=== PATIENT | male | born 1935 | race Caucasian/White ===

== ENCOUNTER 2019-03-17 10:26 | Inpatient (IN) | payer MEDICARE ==
[2019-03-17] VITALS (7 sets, daily range): BP systolic 111–153; BP diastolic 39–95
[~2019-03-17] VITALS: Ht 177.8 cm; Wt 83.0 kg
--- NOTE | 2019-03-17 10:52 | ED Dyspnea ---
General Chief Complaint: Cardiac/General Problems Stated Complaint: SOB; DIZZY Source of Information: Patient Exam Limitations: No Limitations History of Present Illness Date Seen by Provider: Mar 17, 2019 Time Seen by Provider: 10:32 Initial Comments The patient is a pleasant 83-year-old male presents for evaluation of shortness of breath and some lightheadedness over the last day or so. He reports a history of congestive heart failure and states that he normally has some lower extremity edema but mentions that this is been getting worse. Upon arrival his heart rate on the monitor is noted to have 2 consecutive beats followed by a positive and then this repeats. He denies any chest pain, fevers or chills, nausea or vomiting, abdominal or back pain, diarrhea, urinary complaints, productive cough, hemoptysis, or syncope. Is alert and oriented 4, calm, and appears to be in no distress at this time. Timing/Duration: 24 Hours Severity: Mild Activities at Onset: None Allergies and Home Medications Allergies Coded Allergies: BCG (Bacillus Calmette-Abdias) vacc (Verified Allergy, Unknown, 03/17/19) Patient Home Medication List Home Medication List Reviewed: Yes Review of Systems Review of Systems Constitutional: no symptoms reported EENTM: no symptoms reported Respiratory: short of breath Cardiovascular: edema Gastrointestinal: no symptoms reported Genitourinary: no symptoms reported Musculoskeletal: no symptoms reported Skin: no symptoms reported Psychiatric/Neurological: No Symptoms Reported Endocrine: No Symptoms Reported Hematologic/Lymphatic: No Symptoms Reported All Other Systems Reviewed Negative Unless Noted: Yes Past Rmhvahy-Wcbtoa-Smvgar Hx Past Med/Social Hx: Reviewed Nursing Past Med/Soc Hx Patient Social History Recent Foreign Travel: No Physical Exam Vital Signs Vital Signs - First Documented 03/17/19 10:47 Temp 36.1 Pulse 60 Resp 17 B/P (MAP) 135/78 (97) Pulse Ox 94 O2 Delivery Room Air Capillary Refill : Height, Weight, BMI Height: '" Weight: lbs. oz. 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 Norm as Tested Skin: Normal Color, Warm/Dry Progress/Results/Core Measures Results/Orders Lab Results Laboratory Tests Test 03/17/19 10:40 Range/Units White Blood Count 8.2 4.3-11.0 10^3/uL Red Blood Count 3.00 L 4.35-5.85 10^6/uL Hemoglobin 8.6 L 13.3-17.7 G/DL Hematocrit 27 L 40-54 % Mean Corpuscular Volume 89 80-99 FL Mean Corpuscular Hemoglobin 29 25-34 PG Mean Corpuscular Hemoglobin Concent 32 32-36 G/DL Red Cell Distribution Width 14.7 H 10.0-14.5 % Platelet Count 388 130-400 10^3/uL Mean Platelet Volume 9.1 7.4-10.4 FL Neutrophils (%) (Auto) 82 H 42-75 % Lymphocytes (%) (Auto) 13 12-44 % Monocytes (%) (Auto) 4 0-12 % Eosinophils (%) (Auto) 0 0-10 % Basophils (%) (Auto) 0 0-10 % Neutrophils # (Auto) 6.7 1.8-7.8 X 10^3 Lymphocytes # (Auto) 1.1 1.0-4.0 X 10^3 Monocytes # (Auto) 0.4 0.0-1.0 X 10^3 Eosinophils # (Auto) 0.0 0.0-0.3 10^3/uL Basophils # (Auto) 0.0 0.0-0.1 10^3/uL Sodium Level 131 L 135-145 MMOL/L Potassium Level 5.5 H 3.6-5.0 MMOL/L Chloride Level 99 98-107 MMOL/L Carbon Dioxide Level 16 L 21-32 MMOL/L Anion Gap 16 H 5-14 MMOL/L Blood Urea Nitrogen 65 H 7-18 MG/DL Creatinine 3.07 H 0.60-1.30 MG/DL Estimat Glomerular Filtration Rate 20 BUN/Creatinine Ratio 21 Glucose Level 169 H 70-105 MG/DL Calcium Level 9.1 8.5-10.1 MG/DL Corrected Calcium 9.7 8.5-10.1 MG/DL Total Bilirubin 0.3 0.1-1.0 MG/DL Aspartate Amino Transf (AST/SGOT) 78 H 5-34 U/L Alanine Aminotransferase (ALT/SGPT) 66 H 0-55 U/L Alkaline Phosphatase 205 H 40-136 U/L Troponin I < 0.30 <0.30 NG/ML Pro-B-Type Natriuretic Peptide 56831.0 H <75.0 PG/ML Total Protein 7.2 6.4-8.2 GM/DL Albumin 3.2 3.2-4.5 GM/DL My Orders Orders - KRISTAN KNOWLES DO Cbc With Automated Diff (03/17/19 10:28) Comprehensive Metabolic Panel (03/17/19 10:28) Chest 1 View Ap/Pa Only (03/17/19 10:28) Ekg Tracing (03/17/19 10:28) O2 (03/17/19 10:28) Ed Iv/Invasive Line Start (03/17/19 10:28) Probnp Fs (03/17/19 10:28) Troponin I Fs (03/17/19 10:28) Yard Supervisor (03/17/19 10:28) Vital Signs/I&O 03/17/19 10:47 Temp 36.1 Pulse 60 Resp 17 B/P (MAP) 135/78 (97) Pulse Ox 94 O2 Delivery Room Air Progress Progress Note : Progress Note @1125 - Patient's heart rate has decreased to the 20s and 30s however his blood pressure is still normal. The patient is awake and alert and conversing dahiana lly. He will need to be transferred to a higher level cardiac care facility. On- call qa tester for [facility] is Dr. Mullins and a voicemail has been left. Case was discussed with the [facility] admitting physician Dr. Black who accepts the patient for admission to the ICU. The patient may need to be evaluated for a pacemaker. His medications do not appear to be the culprit in this case. The patient is agreeable to the transfer to [facility]. Comment EKG@1035 - sinus rhythm, rate of 69, couplets/bigeminy followed by pause, no acute ischemic findings noted, no STEMI, reviewed and interpreted by myself Departure Communication (Admissions) Time/Spoke to Admitting Phy: 11:28 Dr. Black accepts the ICU admission at this time and requests a cardiology consultation with Dr. Mullins Impression Primary Impression: Severe sinus bradycardia Additional Impressions: Symptomatic bradycardia Dyspnea Anemia Acute exacerbation of CHF (congestive heart failure) Disposition: ADMITTED INPATIENT Condition: Critical Admissions Decision to Admit Reason: Admit from ER (General) Decision to Admit/Date: Mar 17, 2019 Time/Decision to Admit Time: 11:33 Departure-Patient Inst. Referrals: SELFVERONICA MD (PCP/Family) Primary Care Physician KRISTAN KNOWLES DO Mar 17, 2019 10:52 POS
[2019-03-17 10:53] LABS: HEMATOCRIT 27 % (40-54); HEMOGLOBIN 8.6 G/DL (13.3-17.7); MEAN CORPUSCULAR HEMOGLOBIN 29 PG (25-34); MEAN CORPUSCULAR HGB CONC 32 G/DL (32-36); MEAN CORPUSCULAR VOLUME 89 FL (80-99); RED CELL DISTRIBUTION WIDTH 14.7 % (10.0-14.5); WHITE BLOOD COUNT 8.2 10^3/uL (4.3-11.0)
[2019-03-17 10:54] LABS: BASOPHILS % (AUTO) 0 % (0-10); EOSINOPHILS % (AUTO) 0 % (0-10); LYMPHOCYTES # (AUTO) 1.1 X 10^3 (1.0-4.0); LYMPHOCYTES % (AUTO) 13 % (12-44); MEAN PLATELET VOLUME 9.1 FL (7.4-10.4); MONOCYTES # (AUTO) 0.4 X 10^3 (0.0-1.0); MONOCYTES % (AUTO) 4 % (0-12); NEUTROPHILS # (AUTO) 6.7 X 10^3 (1.8-7.8); NEUTROPHILS % (AUTO) 82 % (42-75); PLATELET COUNT 388 10^3/uL (130-400)
--- NOTE | 2019-03-17 11:18 | Diagnostic Imaging Report ---
CHEST 1 VIEW AP/PA ONLY Indication: Shortness of breath Comparison: None available. Findings: Right basilar consolidations are present. Small to moderate right pleural effusion. Patchy left basilar opacities are also seen, and there is a trace left pleural effusion. No pneumothorax. Cardiac silhouette is enlarged. Impression: 1. Right basilar consolidations with small effusion. This could represent pneumonia with parapneumonic effusion versus relaxation atelectasis due to the effusion. Dictated by: Dictated on workstation # [id number]
[2019-03-17 11:48] LABS: ALANINE AMINOTRANSFERASE 66 U/L (0-55); ALKALINE PHOSPHATASE 205 U/L (40-136); BILIRUBIN,TOTAL 0.3 MG/DL (0.1-1.0); BUN/CREATININE RATIO 21; CALCIUM 9.1 MG/DL (8.5-10.1); CARBON DIOXIDE 16 MMOL/L (21-32); CHLORIDE 99 MMOL/L (98-107); CREATININE SERUM 3.07 MG/DL (0.60-1.30); GFR ESTIMATED 20; GLUCOSE 169 MG/DL (70-105); POTASSIUM 5.5 MMOL/L (3.6-5.0); SODIUM 131 MMOL/L (135-145)
[2019-03-17 11:49] LABS: ALBUMIN 3.2 GM/DL (3.2-4.5); TOTAL PROTEIN 7.2 GM/DL (6.4-8.2)
[2019-03-17] MEDS ORDERED: FUROSEMIDE 40 MG/4 ML INJ (LASIX) IVP ONE (12:00)
[2019-03-17] MEDS ORDERED: ATROPINE INJECTION 1 MG/10 ML SYR (ABBOTT) ONE (12:58)
[2019-03-17] MEDS ORDERED: CATHETER FLUSH 10 ML SYR IV PRN (13:00)
[2019-03-17] MEDS ORDERED: LEVO112T55 PO (13:09)
[2019-03-17] MEDS ORDERED: FURO40TA4 PO (13:09)
[2019-03-17] MEDS ORDERED: TAMS0.4C98 PO (13:09)
[2019-03-17] MEDS ORDERED: ASPI-983 PO (13:17)
[2019-03-17] MEDS ORDERED: ACET-2429 PO (13:18)
[2019-03-17] MEDS ORDERED: GLUC100016 PO (13:20)
[2019-03-17] MEDS ORDERED: MAGN400T39 PO (13:20)
[2019-03-17] MEDS ORDERED: OMG1KC PO (13:20)
[2019-03-17] MEDS ORDERED: SODI30SP2 NS (13:23)
--- NOTE | 2019-03-17 13:23 | NUR ---
SPOKE WITH THE PATIENT ABOUT HIS MEDICATIONS. WE WENT OVER THE EXT MED HX AND HE VERIFIED HOW HE TAKES THEM. HE ALSO LISTED HIS OTC MEDS. OTC MEDS: TYLENOL BID PRN ASPIRIN 81MG DAILY FISH OIL BID (AM AND NOON) GLUCOSAMINE BID (AM AND NOON) MAGNESIUM HS SALINE NASAL SPRAY NEEDED
--- NOTE | 2019-03-17 13:45 | NUR ---
Pastoral care visit.
[2019-03-17] MEDS ORDERED: CATHETER FLUSH 10 ML SYR IV SCH (14:00)
--- NOTE | 2019-03-17 14:08 | Consultation-Cardiology ---
HPI-Cardiology Cardiology Consultation: Date of Consultation 03/17/19 Time Seen by a Provider: 13:40 Date of Admission 03-17-2019 Attending Physician Ashley Black DO Admitting Physician Boom Jessica MD Consulting Physician Geovanni Mullins MD HPI: Chief Complaint: Bradycardia Mr. Scott is an 83 year old male who has been admitted to ICU 10 from [facility]. He reports increasing weakness, dizziness and near syncope over the course of the last few weeks. He denies any daniella syncope. He reports chronic bilat LE swelling which has been progressively worse. He states he has been taking "fluid pills" to help with the swelling. He reports last night and again this morning he had abdominal pain with nausea and vomiting. He denies any CP. He denies any fever or chills. He states he has had cardiac testing "he thinks" sometime in the past at [facility], but does not recall any of the details or ever seeing a promotions director. His HR on tele is currently in the 40's to upper 30's. He is asymptomatic. Review of Systems-Cardiology Review of Systems Constitutional: No chills, No fever; lightheadedness, malaise Eyes: No vision change Ears/Nose/Throat: No epistaxis, No recent hearing loss Respiratory: As described under HPI Cardiovascular: As described under HPI Gastrointestinal: No constipation, No diarrhea; nausea, vomiting Genitourinary: No dysuria, No hematuria Skin: No rash on exposed areas, No ulcerations on exposed areas Psychiatric/Neurological: As described under HPI Hematologic: No bleeding abnormalities All Other Systems Reviewed Negative Unless Noted: Yes VHZ-Nggtcm-Pwavce Hx Patient Social History Alcohol Use: Denies Use Recreational Drug Use: No Smoking Status: Former Smoker Type Used: Cigarettes 2nd Hand Smoke Exposure: No Recent Foreign Travel: No Recent Infectious Disease Expo: No Hospitalization with Isolation: Denies Immunizations Up To Date Date of Pneumonia Vaccine: Mar 17, 2015 Date of Influenza Vaccine: Jan 28, 2019 Past Medical History PMH As described under Assessment. Family Medical History Family Medical History: He does not report any known family h/o CAD. Allergies and Home Medications Allergies Coded Allergies: BCG (Bacillus Calmette-Abdias) vacc (Verified Allergy, Unknown, 03/17/19) Home Medications Acetaminophen 650 Mg Tablet.er, 650 MG PO BID PRN for PAIN-MILD (1-4), (Reported) Aspirin 81 Mg Tablet.dr, 81 MG PO DAILY, (Reported) Furosemide 40 Mg Tablet, 40 MG PO DAILY, (Reported) Glucosamine Sulfate 2Kcl 1,000 Mg Tablet, 1,000 MG PO 0900,1200, (Reported) Levothyroxine Sodium 112 Mcg Tablet, 112 MCG PO DAILY, (Reported) Magnesium Oxide 400 Mg Tablet, 400 MG PO HS, (Reported) Emeigh 3 Polyunsat Fatty Acids 1,000 Mg Cap, 1,000 MG PO 0900,1200, (Reported) Sodium Chloride 30 Ml Lynndyl, 2 SPRAYS NS BID PRN for CONGESTION, (Reported) Tamsulosin HCl 0.4 Mg Cap, 0.4 MG PO 1999, (Reported) Patient Home Medication List Home Medication List Reviewed: Yes Physical Exam-Cardiology Physical Exam Vital Signs/I&O 03/17/19 03/17/19 03/17/19 03/17/19 10:47 12:00 13:00 13:08 Temp 36.1 Pulse 60 35 35 Resp 17 16 12 B/P (MAP) 135/78 (97) 120/72 120/39 (66) Pulse Ox 94 94 96 99 O2 Delivery Room Air Room Air Nasal Cannula Room Air O2 Flow Rate 2.00 03/17/19 03/17/19 03/17/19 13:16 14:00 15:00 Pulse 49 39 41 Resp 18 13 B/P (MAP) 153/89 (110) 111/89 (96) Pulse Ox 91 99 O2 Delivery Nasal Cannula Nasal Cannula O2 Flow Rate 2.00 2.00 Capillary Refill : Less Than 3 Seconds Constitutional: AAO x 3, well-developed, well-nourished HEENT: PERRL, hearing is well preserved, oral hygience is good Neck: No carotid bruit; carotid pulses are 2 + bilaterally Respiratory: No accessory muscle use, No respiratory distress; chest expansion is symmetric, chest is bilaterally symmetric, lungs clear to auscultation Cardiovascular: irregularly irregular; No JVD; bradycardia, systolic murmur Gastrointestinal: No tender; soft, round, audible bowel sounds Genital/Rectal: other (urinary catheter to DD; clear, yellow urine) Extremities: swelling (3 (+) pitting bilat LE swelling) Neurologic/Psychiatric: other (moves all extremities) Skin: No rash on exposed areas, No ulcerations on exposed areas Data Review Labs Laboratory Tests 03/17/19 10:40: White Blood Count 8.2, Red Blood Count 3.00L, Hemoglobin 8.6L, Hematocrit 27L, Mean Corpuscular Volume 89, Mean Corpuscular Hemoglobin 29, Mean Corpuscular Hemoglobin Concent 32, Red Cell Distribution Width 14.7H, Platelet Count 388, Mean Platelet Volume 9.1, Neutrophils (%) (Auto) 82H, Lymphocytes (%) (Auto) 13, Monocytes (%) (Auto) 4, Eosinophils (%) (Auto) 0, Basophils (%) (Auto) 0, Neutrophils # (Auto) 6.7, Lymphocytes # (Auto) 1.1, Monocytes # (Auto) 0.4, Eosinophils # (Auto) 0.0, Basophils # (Auto) 0.0, Sodium Level 131L, Potassium Level 5.5H, Chloride Level 99, Carbon Dioxide Level 16L, Anion Gap 16H, Blood Urea Nitrogen 65H, Creatinine 3.07H, Estimat Glomerular Filtration Rate 20, BUN/Creatinine Ratio 21, Glucose Level 169H, Calcium Level 9.1, Corrected Calcium 9.7, Total Bilirubin 0.3, Aspartate Amino Transf (AST/SGOT) 78H, Alanine Aminotransferase (ALT/SGPT) 66H, Alkaline Phosphatase 205H, Troponin I < 0.30, Pro-B-Type Natriuretic Peptide 12436.0H, Total Protein 7.2, Albumin 3.2 03/17/19 14:13: Thyroid Stimulating Hormone (TSH) 9.91H Laboratory Tests 03/17/19 10:40 Radiology NAME: ALEE SCOTT [facility] REC#: [id number] PT STATUS: ADM IN : 1935 PHYSICIAN: KRISTAN KNOWLES DO ADMIT DATE: 03/17/19/ICU Signed Date of Exam:03/17/19 CHEST 1 VIEW AP/PA ONLY CHEST 1 VIEW AP/PA ONLY Indication: Shortness of breath Comparison: None available. Findings: Right basilar consolidations are present. Small to moderate right pleural effusion. Patchy left basilar opacities are also seen, and there is a trace left pleural effusion. No pneumothorax. Cardiac silhouette is enlarged. Impression: 1. Right basilar consolidations with small effusion. This could represent pneumonia with parapneumonic effusion versus relaxation atelectasis due to the effusion. Dictated by: Dictated on workstation # [id number] Dict: 03/17/19 1114 Trans: 03/17/19 1242 [facility] [id number] Interpreted by: OCTAVIA SOSA MD Electronically signed by: OCTAVIA SOSA MD 03/17/19 124 ECG Impression ECG Comment Ryan-arrhythmia with RBB A/P-Cardiology Assessment/Admission Diagnosis Acute renal failure with severe metabolic acidosis Moderate hyperkalemia with associated bradycardia Elevated liver enzymes of undetermined etiology Hypothyroidism - replacement tx H/O bladder cancer BPH H/O spinal fusion Clinical Quality Measures DVT/VTE Risk/Contraindication: Risk Factor Score Per Nursin RFS Level Per Nursing on Admit: 4+=Very High BLAYNE CHADWICK Mar 17, 2019 14:08 POS
[2019-03-17] MEDS ORDERED: CALCIUM GLUC. 10% 4.65 MEQ/10 ML VIAL IV ONE (14:15)
[2019-03-17] MEDS ORDERED: SODIUM BICARB 8.4% 50 MEQ/50 ML VIAL IV ONE (14:15)
[2019-03-17] MEDS ORDERED: CALCIUM GLUC. 10% 4.65 MEQ/10 ML VIAL ONE (14:16)
[2019-03-17] MEDS ORDERED: SODIUM BICARB 8.4% 50 MEQ/50 ML VIAL ONE ×2 (14:16→14:20)
[2019-03-17] MEDS ORDERED: SODIUM BICARBONATE 8.4% VIAL 100 MEQ in 1/2 NS IV SOLUTION 1,000 ML IV STA (14:19)
[2019-03-17] MEDS ORDERED: DEXTROSE 50% 50 ML (IMS) SYR ONE (14:20)
[2019-03-17] MEDS ORDERED: inSUlin (REGULAR) HUMAN 1 UNIT/0.01 ML (CHARGE PER UNIT) ONE (14:21)
[2019-03-17] MEDS ORDERED: CALCIUM GLUCONATE 1 GM/NS 50 ML IV ONE ×2 (14:30)
[2019-03-17] MEDS ORDERED: inSUlin (REGULAR) HUMAN 1 UNIT/0.01 ML (CHARGE PER UNIT) SC ONE (14:30)
[2019-03-17] MEDS ORDERED: DEXTROSE 50% 50 ML (IMS) SYR IV ONE (14:30)
--- NOTE | 2019-03-17 15:20 | History & Physical-Hospitalist ---
History of Present Illness HPI/Chief Complaint CC: Bradycardia with listlessness HPI: This is an 83yoWM clinic pt of Dr. Jessica who just recently transferred his care to him since April who has a PMH of a multitude of medical problems including HTN but chronic renal insufficiency included baseline creatinine 1.6 this past September who presented to the [facility] ER with listlessness and weakness found to have significant bradycardia of the 20 range, he remained stable, he was not on any beta blockers or calcium channel blockers to cause the bradycardia. Pt was found to have a creatinine of 3 and electrolyte imbalance along with elevated BNP originally sent to [facility] ICU found to have Uremia as the cause of the bradycardia. He was deemed stable to transfer after a temporary pacemaker was placed and [facility] accepted the transfer to TCU for probable pacemaker placement after cardiac work up and uremia resolved. Source: patient, RN/MD, old records Exam Limitations: no limitations Date Seen 03/17/19 Time Seen by a Provider: 15:10 Attending Physician Ashley Black Maxwell MD Referring Physician Date of Admission Mar 17, 2019 at 11:48 Home Medications & Allergies Home Medications Reviewed patient Home Medication Reconciliation performed by pharmacy medication reconciliations entry level installation technician and/or nursing. Patients Allergies have been reviewed. Allergies Allergies Coded Allergies BCG (Bacillus Calmette-Abdias) vacc (Verified Allergy, Unknown, 03/17/19) Past Ohztvca-Ybeuhs-Orlzil Hx Past Med/Social Hx: Reviewed Nursing Past Med/Soc Hx, Reviewed and Corrections made Patient Social History Alcohol Use: Denies Use Recreational Drug Use: No Smoking Status: Former Smoker Former Smoker, Quit: Jan 21, 1996 Type Used: Cigarettes 2nd Hand Smoke Exposure: No Recent Foreign Travel: No Contact w/other who traveled: No Recent Infectious Disease Expo: No Immunizations Up To Date Date of Pneumonia Vaccine: Mar 17, 2015 Date of Influenza Vaccine: Jan 28, 2019 Past Medical History Cardiac: High Cholesterol, Hypertension Genitourinary: Renal Failure Review of Systems Constitutional: see HPI, malaise, weakness Physical Exam Physical Exam Vital Signs Vital Signs - First Documented 03/17/19 03/17/19 10:47 13:00 Temp 36.1 Pulse 60 Resp 17 B/P (MAP) 135/78 (97) Pulse Ox 94 O2 Delivery Room Air O2 Flow Rate 2.00 Capillary Refill : Less Than 3 Seconds Height, Weight, BMI Height: '" Weight: lbs. oz. kg; 26.25 BMI Method: General Appearance: No Apparent Distress, Anxious, Chronically ill Eyes: Right Eye Normal Inspection, Right Eye PERRL HEENT: PERRL/EOMI, Normal ENT Inspection, Pharynx Normal, Moist Mucous Membranes Neck: Full Range of Motion, Normal Inspection, Non Tender Respiratory: Chest Non Tender, Lungs Clear, Normal Breath Sounds, No Accessory Muscle Use, No Respiratory Distress Cardiovascular: No Edema, No Gallop, No JVD, No Murmur, Normal Peripheral Pulses, Bradycardia Gastrointestinal: Normal Bowel Sounds, No Organomegaly, No Pulsatile Mass, Non Tender, Soft Back: Normal Inspection, No CVA Tenderness, No Vertebral Tenderness Extremity: Normal Capillary Refill, Normal Inspection, Normal Range of Motion, Non Tender, No Calf Tenderness, No Pedal Edema Neurologic/Psychiatric: Alert, Oriented x3, No Motor/Sensory Deficits, Normal M ood/Affect Skin: Normal Color, Warm/Dry Lymphatic: No Adenopathy Results Results/Procedures Labs Laboratory Tests 03/17/19 10:40 03/17/19 17:10 Patient resulted labs reviewed. Assessment/Plan Admission Diagnosis Assessment: Symptomatic bradycardia requiring temporary pacemaker placement prior to transfer to higher level of care for nephrology services Uremia acute CRI HTN Metabolic acidosis Elevated [facility] Status: Inpatient Order (span 2 midnights) Reason for Inpatient Admission: ARF w/symptomatic bracdycardia severe Diagnosis/Problems Diagnosis/Problems (1) Severe sinus bradycardia Status: Acute (2) Uremia (3) Metabolic acidosis (4) Elevated brain natriuretic peptide (BNP) level (5) Dyspnea Status: Acute (6) Acute exacerbation of CHF (congestive heart failure) Status: Acute Clinical Quality Measures DVT/VTE Risk/Contraindication: Risk Factor Score Per Nursin RFS Level Per Nursing on Admit: 4+=Very High ASHLEY BLACK DO Mar 17, 2019 15:20 POS
--- NOTE | 2019-03-17 15:30 | Consultation-Cardiology ---
HPI-Cardiology Cardiology Consultation: Date of Consultation 03/17/19 Time Seen by a Provider: 14:40 Date of Admission Attending Physician Ashley Black DO Admitting Physician Boom Jessica MD Consulting Physician DESIRE KELLER MD, MA, FACP, FACC, FSCAI, CCDS HPI: Chief Complaint: CC: Shortness of breath HPI Mr. Dominique is an 83 year old male who has been admitted to ICU to Dr Black's service after being transferred from [facility] where he had presented with increasing shortness of breath and increasing generalized weakness and dizziness over the course of the last few weeks. He denies any daniella syncope. He reports chronic bilat LE swelling which has been progressively worse. He states he has been taking "fluid pills" to help with the swelling. He reports last night and again this morning he had abdominal pain with nausea and vomiting. He denies any CP. He denies any fever or chills. He states he has had cardiac testing "he thinks" sometime in the past at [facility][1], but does not recall any of the details or ever seeing a cost engineer. He was noted to be bradycardic in the [facility] ER. Review of Systems-Cardiology Review of Systems Constitutional: malaise, tiredness; No weight loss, No weight gain Eyes: No vision change Ears/Nose/Throat: No ear discharge, No nasal drainage Respiratory: As described under HPI Cardiovascular: No chest pain, No palpitations Gastrointestinal: As described under HPI Genitourinary: No dysuria, No hematuria, No urine frequency changes Musculoskeletal: back pain (chronic) Skin: No rash, No ulcerations Psychiatric/Neurological: other (gen weakness); No seizure, No focal weakness Hematologic: No bleeding abnormalities All Other Systems Reviewed Negative Unless Noted: Yes AWI-[id number]-[id number] Hx Patient Social History Alcohol Use: Denies Use Recreational Drug Use: No Smoking Status: Former Smoker Type Used: Cigarettes 2nd Hand Smoke Exposure: No Recent Foreign Travel: No Recent Infectious Disease Expo: No Hospitalization with Isolation: Denies Immunizations Up To Date Date of Pneumonia Vaccine: Mar 17, 2015 Date of Influenza Vaccine: Jan 28, 2019 Past Medical History PMH As described under Assessment. Family Medical History Family Medical History: He does not repor fam h/o early CAD or SCD Allergies and Home Medications Allergies Coded Allergies: BCG (Bacillus Calmette-Abdias) vacc (Verified Allergy, Unknown, 03/17/19) Home Medications Acetaminophen 650 Mg Tablet.er, 650 MG PO BID PRN for PAIN-MILD (1-4), (Reported) Aspirin 81 Mg Tablet.dr, 81 MG PO DAILY, (Reported) Furosemide 40 Mg Tablet, 40 MG PO DAILY, (Reported) Glucosamine Sulfate 2Kcl 1,000 Mg Tablet, 1,000 MG PO 0900,1200, (Reported) Levothyroxine Sodium 112 Mcg Tablet, 112 MCG PO DAILY, (Reported) Magnesium Oxide 400 Mg Tablet, 400 MG PO HS, (Reported) [place] 3 Polyunsat Fatty Acids 1,000 Mg Cap, 1,000 MG PO 0900,1200, (Reported) Sodium Chloride 30 [address] [place], 2 SPRAYS NS BID PRN for CONGESTION, (Reported) Tamsulosin HCl 0.4 Mg Cap, 0.4 MG PO 1999, (Reported) Patient Home Medication List Home Medication List Reviewed: Yes Physical Exam-Cardiology Physical Exam Vital Signs/I&O 03/17/19 03/17/19 03/17/19 03/17/19 10:47 12:00 13:00 13:08 Temp 36.1 Pulse 60 35 35 Resp 17 16 12 B/P (MAP) 135/78 (97) 120/72 120/39 (66) Pulse Ox 94 94 96 99 O2 Delivery Room Air Room Air Nasal Cannula Room Air O2 Flow Rate 2.00 03/17/19 03/17/19 03/17/19 13:16 14:00 15:00 Pulse 49 39 41 Resp 18 13 B/P (MAP) 153/89 (110) 111/89 (96) Pulse Ox 91 99 O2 Delivery Nasal Cannula Nasal Cannula O2 Flow Rate 2.00 2.00 Capillary Refill : Less Than 3 Seconds Constitutional: AAO x 3, well-developed, well-nourished HEENT: EOMI, hearing is well preserved; No xanthelasmas are seen Neck: carotid pulses are 2 + bilaterally Respiratory: No accessory muscle use; other (fair to good air entry, diminished at the bases; basal coarse crackles) Cardiovascular: No regular rate-rhythm; S1 and S2, systolic murmur (2/6 [place]ILL[place] at card base) Gastrointestinal: No tender; soft; No guarding, No rebound Extremities: other (mild bilateral leg edema); No clubbing, No cyanosis Neurologic/Psychiatric: oriented x 3, other (moves all limbs equally) Skin: No rash on exposed areas, No ulcerations on exposed areas Data Review Labs Laboratory Tests 03/17/19 10:40: White Blood Count 8.2, Red Blood Count 3.00L, Hemoglobin 8.6L, Hematocrit 27L, Mean Corpuscular Volume 89, Mean Corpuscular Hemoglobin 29, Mean Corpuscular Hemoglobin Concent 32, Red Cell Distribution Width 14.7H, Platelet Count 388, Mean Platelet Volume 9.1, Neutrophils (%) (Auto) 82H, Lymphocytes (%) (Auto) 13, Monocytes (%) (Auto) 4, Eosinophils (%) (Auto) 0, Basophils (%) (Auto) 0, Neutrophils # (Auto) 6.7, Lymphocytes # (Auto) 1.1, Monocytes # (Auto) 0.4, Eosinophils # (Auto) 0.0, Basophils # (Auto) 0.0, Sodium Level 131L, Potassium Level 5.5H, Chloride Level 99, Carbon Dioxide Level 16L, Anion Gap 16H, Blood Urea Nitrogen 65H, Creatinine 3.07H, Estimat Glomerular Filtration Rate 20, BUN/Creatinine Ratio 21, Glucose Level 169H, Calcium Level 9.1, Corrected Calcium 9.7, Total Bilirubin 0.3, Aspartate Amino Transf (AST/SGOT) 78H, Alanine Aminotransferase (ALT/SGPT) 66H, Alkaline Phosphatase 205H, Troponin I < 0.30, Pro-B-Type Natriuretic Peptide 02400.0H, Total Protein 7.2, Albumin 3.2 03/17/19 14:13: Thyroid Stimulating Hormone (TSH) 9.91H A/P-Cardiology Assessment/Admission Diagnosis Renal failure, probably acute, associated with metabolic acidosis, hyperkalemia and QRS widening and bradycardia Probable congestive heart failure of undetermined etiology Elevated transaminases, possibly due to passive hepatic congestion H/o hypothyroidism treated with thyroid replacement therapy H/o bladder cancer BPH H/o spinal fusion Discussion and Recomendations * Treat with bicarb, iv fluids, calcium gluconate and dextrose with insulin (to treat acidosis and hyperkalemia) * Temporary pacemaker. May not need permanent pacemaker after metabolic abnormalities are corrected * Would need further cardiac w/u, including echo * I spoke with the attending, Dr Black, and have recommended transfer to a tertiary care facility where, in addition to Cardiology and Intensive Care, Nephrology would also be available * I discussed these issues with the patient and her daughter. They concur Clinical Quality Measures DVT/VTE Risk/Contraindication: Risk Factor Score Per Nursin RFS Level Per Nursing on Admit: 4+=Very High DESIRE KELLER MD FACP [facility] CCDS Mar 17, 2019 15:30 POS
[2019-03-17] MEDS ORDERED: MIDAZOLAM 2 MG/2 ML (VERSED) VIAL ONE (15:39)
[2019-03-17] MEDS ORDERED: HEParin (CATH LAB) 1,000 ML IV ONE (15:40)
[2019-03-17] MEDS ORDERED: LIDOCAINE 2% 20 ML (XYLOCAINE) VIAL ONE (15:40)
[2019-03-17] MEDS ORDERED: LIDOCAINE 1% INJ 20 ML 20 ML VIAL ONE (15:41)
--- NOTE | 2019-03-17 15:46 | Cardiac Procedure Note-CS/ASA ---
Pre-Procedure Note Pre-Op Procedure Note H&P Reviewed The H&P was reviewed, patient examined and no changes noted. Date H&P Reviewed: Mar 17, 2019 Time H&P Reviewed: 15:46 Conscious Sedation Pre-Proced Time 15:46 ASA Score 3 For ASA 3 and 4: Consider anesthesia and medical clearance. Also, for patients with a history of failed moderate sedation consider anesthesia. Airway Lungs Heart ASA score ASA 1: a normal healthy patient ASA 2: a patient with a mild systemic disease (mid diabetes, controlled hypertension, obesity ASA 3: a patient with a severe systemic disease that limits activity (angina, COPD, prior Myocardial infarction) ASA 4: a patient with an incapacitating disease that is a constant threat to life (CHF, renal failure) ASA 5: a moribund patient not expected to survive 24 hrs. (ruptured aneurysm) ASA 6: a declared brain- patient whose organs are being harvested. For emergent operations, add the letter E after the classification Mallampati Classification Grade 2 Sedation Plan Analgesia, Amnesia, Plan communicated to team members, Discussed options with patient/fam, Discussed risks with patient/fam The patient is an appropriate candidate to undergo the planned procedure, sedation, and anesthesia. The patient immediately re-assessed prior to indication. DESIRE KELLER MD FACP FAC CCDS Mar 17, 2019 15:46 POS
[2019-03-17 17:34] LABS: BILIRUBIN,TOTAL 0.4 MG/DL (0.1-1.0); CALCIUM 9.2 MG/DL (8.5-10.1); CREATININE SERUM 3.29 MG/DL (0.60-1.30); POTASSIUM 5.2 MMOL/L (3.6-5.0); TOTAL PROTEIN 6.5 GM/DL (6.4-8.2)
--- NOTE | 2019-03-17 23:33 | OPERATIVE REPORT ---
DATE OF SERVICE: 03/17/2019 PREOPERATIVE DIAGNOSIS: Bradycardia. POSTOPERATIVE DIAGNOSIS: Bradycardia. PROCEDURE: Temporary pacemaker implantation. The patient is an 83-year-old man who was admitted with acute renal failure and metabolic abnormalities including metabolic acidosis and hyperkalemia. In the setting of these metabolic abnormalities, he is also exhibiting QRS widening and bradycardia. This may be temporary and may resolve after the renal failure and metabolic abnormalities have been corrected. Meanwhile, we proceeded with a temporary pacemaker insertion. We used the left groin approach. The left groin was prepared and draped in the usual sterile fashion. Lidocaine 1% was used for local anesthesia. The Modified Seldinger technique was used to advance a 5-Maltese sheath into the left femoral vein. We advanced a temporary pacemaker catheter to the right ventricle and the pacing tip was placed at the right ventricular apex. The capture threshold was 0.8 milliamperes. The stimulation energy was set at 10 milliamperes. The R-wave amplitude was approximately 12 volts. The sensitivity was set at 2. The rate was set at 50 beats per minute (the patient's [place] rate being approximately 30 beats per minute). The patient tolerated the procedure well. The lead advancement and placement were carried out under fluoroscopy. The patient tolerated the procedure well. 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
== END 2019-03-17 20:00 | disposition short-term general hospital (02) | DRG 261 ==
LOC: EDUNIT# 10:26 → ER FS 10:27 → ICU 11:48
PROVIDERS: ADMIT Internal Medicine; ATTEND Internal Medicine
PROC: 02HK3JZ Insertion of Pacemaker Lead into Right Ventricle, Percutaneous Approach (ICD-10-PCS; principal; 2019-03-17)
DX: R00.1 Bradycardia, unspecified (principal); N17.9 Acute kidney failure, unspecified; E87.2 Acidosis; E87.5 Hyperkalemia; I50.9 Heart failure, unspecified; R74.8 Abnormal levels of other serum enzymes; E03.9 Hypothyroidism, unspecified; N40.0 Benign prostatic hyperplasia without lower urinary tract symptoms; Z87.891 Personal history of nicotine dependence; Z85.51 Personal history of malignant neoplasm of bladder
CPT/HCPCS: 33210; 36415; 71045; 80053; 83880; 84443; 84484; 85025; 87081; 93005